=== PATIENT | female | born 1965 | race Caucasian/White ===

== ENCOUNTER 2017-03-08 22:34 | Emergency (ER) | payer SELFPAY ==
[~2017-03-08] VITALS: Ht 154.9 cm; Wt 69.4 kg
[2017-03-09 02:22] VITALS: BP 115/65
== END 2017-03-09 02:15 | disposition home or self-care (01) ==
LOC: ED 22:34
DX: S52.501A Unspecified fracture of the lower end of right radius, initial encounter for closed fracture (principal); I10 Essential (primary) hypertension; E11.9 Type 2 diabetes mellitus without complications; Z79.84 Long term (current) use of oral hypoglycemic drugs; X58.XXXA Exposure to other specified factors, initial encounter; Y93.89 Activity, other specified; Y99.8 Other external cause status; Y92.89 Other specified places as the place of occurrence of the external cause
CPT/HCPCS: J2270